=== PATIENT | male | born 1950 | race Caucasian/White ===

== ENCOUNTER 2024-05-04 08:15 | Outpatient (CLI) | payer MEDICARE | END 2024-05-04 08:16 | disposition home or self-care (01) | LOC: CSHMRI 08:15 | PROVIDERS: ATTEND Orthopaedic Surgery Hand Surgery | DX: M17.12 Unilateral primary osteoarthritis, left knee (principal); S83.242A Other tear of medial meniscus, current injury, left knee, initial encounter; S83.272A Complex tear of lateral meniscus, current injury, left knee, initial encounter; M94.8X6 Other specified disorders of cartilage, lower leg; S83.512A Sprain of anterior cruciate ligament of left knee, initial encounter; M25.462 Effusion, left knee ==